=== PATIENT | female | born 1950 | race Two or more races ===

== ENCOUNTER 2021-05-16 09:23 | Outpatient (CLI) | payer OTHER ==
[~2021-05-16 09:23] MED LIST: ULTRACET PO
== END 2021-05-20 15:31 | disposition home or self-care (01) ==
LOC: SONOGRAMA 09:23
PROVIDERS: ATTEND Pathology Anatomic Pathology & Clinical Pathology
DX: D34 Benign neoplasm of thyroid gland (principal); E04.2 Nontoxic multinodular goiter